=== PATIENT | male | born 1950 | race Hispanic/Latino ===

== ENCOUNTER 2019-03-04 05:47 | Day surgery (SDC) | payer OTHER ==
[2019-02-27 09:40] VITALS: BP 159/67
[2019-02-27 09:58] LABS: BASOPHILS % (AUTO) 0.6 % (0.0-5.0); EOSINOPHILS % (AUTO) 4.7 % (0.0-8.0); HEMATOCRIT 44.3 % (42-54); LYMPHOCYTES % (AUTO) 22.4 % (21.0-51.0); MEAN CORPUSCULAR HGB CONC 34.2 g/dL (32.0-36.0); MEAN CORPUSCULAR VOLUME 87.8 fL (79-99); NEUTROPHILS % (AUTO) 65.3 % (40.0-77.0); NUCLEATED RED BLOOD CELLS 0.1 % (0.0-0.19); PLATELET COUNT (AUTO) 196 K/uL (130-400); RED BLOOD CELL COUNT(AUTO) 5.05 MIL/uL (4.50-6.20); RED CELL DISTRIBUTION WIDTH 14.3 % (11.0-15.5); WHITE BLOOD COUNT (AUTO) 7.6 K/uL (4.8-10.8)
[2019-02-27 09:59] LABS: APPEARANCE,URINE Clear (CLEAR); BILIRUBIN,URINE Negative (NEGATIVE); COLOR,URINE Yellow (YELLOW); GLUCOSE, URINE (UA) >=1000 mg/dL (NEGATIVE); KETONES,URINE Negative (NEGATIVE); LEUKOCYTE ESTERASE ,URINE Negative (NEGATIVE); NITRATE,URINE Negative (NEGATIVE); OCCULT BLOOD,URINE Negative (NEGATIVE); PROTEIN,URINE Negative (NEGATIVE)
[2019-02-27 10:05] LABS: BACTERIA,URINE Rare /HPF (None Seen); RBC,URINE 0-1 /HPF (0-1); SQUAMOUS EPITHELIAL CELL,UR Rare /HPF (0-2); WBC,URINE 0-1 /HPF (0-1)
[2019-02-27 10:06] LABS: POTASSIUM 4.3 mmol/L (3.5-5.1)
[2019-02-27 10:08] LABS: INR 0.99 (0.85-1.15); PARTIAL THROMBOPLASTIN TIME 25.2 SEC (26.3-35.5); PROTHROMBIN TIME 10.4 SEC (9.6-11.6)
[2019-03-04] VITALS (11 sets, daily range): BP systolic 126–166; BP diastolic 65–72
[~2019-03-04] VITALS: Ht 167.6 cm; Wt 82.2 kg
[~2019-03-04 05:47] MED LIST: AMLO10TA7 PO; ASPI-1181 PO; ENAL20TA PO; LIRA0.6P SQ; METF-444 PO; SIMV-46 PO
[2019-03-04] MEDS ORDERED: SODIUM CHLORIDE 0.9% 1000ML 1,000 ML IV ONE (06:05)
[2019-03-04] MEDS ORDERED: LIDOCAINE HCL 1% 20 ML VIAL ONE (10:07)
[2019-03-04] MEDS ORDERED: SODIUM BICARB 50MEQ 50ML VIAL ONE (10:07)
[2019-03-04] MEDS ORDERED: NITROGLYCERIN 5 MG/ML 10 ML VIAL IV ONE (10:08)
[2019-03-04] MEDS ORDERED: IODIXANOL 320 MG/ML 100 ML VIAL ONE (10:08)
[2019-03-04] MEDS ORDERED: SODIUM CHLORIDE 0.9% 1000ML 1,000 ML IV SCH (11:07)
[2019-03-04] MEDS ORDERED: DEXTROSE 50%-WATER 50 ML DISP.SYRIN IV PRN (11:15)
[2019-03-04] MEDS ORDERED: GLUCAGON 1MG KIT 1 MG ML IM PRN (11:15)
[2019-03-04] MEDS ORDERED: INSULIN HUMULIN R 100 UNIT/ML 3ML SQ SCH (11:30)
--- NOTE | 2019-03-04 15:10 | NUR ---
Pt discharged home, tolerating solids and fluids well, ambulating well, voided. Pt denies any severe pain, nausea or dizziness. Cath site to right groin remains soft, nontender, dressing dry, clean and intact. Pt instructed in routine and emergency care of right femoral groin. Prescription for Plavix given to spouse. Reminded pt to HOLD METFORMIN for 48 hours. Pt and spouse deny any further questions.
== END 2019-03-04 15:10 | disposition home or self-care (01) ==
LOC: DAH 05:47
PROVIDERS: ATTEND Internal Medicine Cardiovascular Disease
DX: I65.23 Occlusion and stenosis of bilateral carotid arteries (principal); I70.0 Atherosclerosis of aorta; I10 Essential (primary) hypertension; E11.9 Type 2 diabetes mellitus without complications; E78.5 Hyperlipidemia, unspecified; Z98.890 Other specified postprocedural states; Z79.82 Long term (current) use of aspirin; Z79.899 Other long term (current) drug therapy
CPT/HCPCS: 36223; 36415; 71045; 80048; 81001; 82948 ×2; 85025; 85610; 85730; 93005; A4215; A4216; A4221; A4222; A4223 ×3; A4606; A4663; C1760; C1769; C1894; J1644; J3490 ×2; J7030; Q9967

== ENCOUNTER → 2019-06-02 | Outpatient (CLI) | payer OTHER ==
[~2019-06-02] MED LIST changes: +BENZ-51 PO; +CEFD300C3 PO; +CLOP75TA32 PO; +FENO145T26 PO
[2019-06-02 11:47] LABS: BASOPHILS % (AUTO) 0.7 % (0.0-5.0); EOSINOPHILS % (AUTO) 6.7 % (0.0-8.0); HEMATOCRIT 42.2 % (42-54); LYMPHOCYTES % (AUTO) 23.5 % (21.0-51.0); MEAN CORPUSCULAR HEMOGLOBIN 29.1 pg (27.0-33.0); MEAN CORPUSCULAR HGB CONC 33.4 g/dL (32.0-36.0); MONOCYTES % (AUTO) 9.2 % (3.0-13.0); NEUTROPHILS % (AUTO) 59.5 % (40.0-77.0); PLATELET COUNT (AUTO) 223 K/uL (130-400); RED BLOOD CELL COUNT(AUTO) 4.85 MIL/uL (4.50-6.20); RED CELL DISTRIBUTION WIDTH 13.8 % (11.0-15.5); WHITE BLOOD COUNT (AUTO) 8.4 K/uL (4.8-10.8)
[2019-06-02 11:51] LABS: APPEARANCE,URINE Clear (CLEAR); BILIRUBIN,URINE Negative (NEGATIVE); COLOR,URINE Yellow (YELLOW); GLUCOSE, URINE (UA) TRACE mg/dL (NEGATIVE); KETONES,URINE Trace mg/dL (NEGATIVE); LEUKOCYTE ESTERASE ,URINE Negative (NEGATIVE); NITRATE,URINE Negative (NEGATIVE); OCCULT BLOOD,URINE Negative (NEGATIVE); PROTEIN,URINE POS 2+ mg/dL (NEGATIVE)
[2019-06-02 11:53] LABS: BACTERIA,URINE Rare /HPF (None Seen); RBC,URINE 0-1 /HPF (0-1); SQUAMOUS EPITHELIAL CELL,UR Rare /HPF (0-2); WBC,URINE 0-1 /HPF (0-1)
[2019-06-02 11:54] LABS: CREATININE 1.1 mg/dL (0.5-1.5); POTASSIUM 4.2 mmol/L (3.5-5.1)
[2019-06-02 11:56] LABS: INR 0.98 (0.85-1.15); PARTIAL THROMBOPLASTIN TIME 25.4 SEC (26.3-35.5); PROTHROMBIN TIME 10.3 SEC (9.6-11.6)
--- NOTE | 2019-06-02 12:22 | NUR ---
NURSING PT STATES HE HAS STOPPED PLAVIX ON HIS OWN FOR ONE WEEK BECAUSE HE JUST DOESN'T THINK HE NEEDS TO BE TAKING BOTH PLAVIX AND ASA. I EXPLAINED DIFFERENCE BETWEEN BOTH MEDS BUT PT INSIST NO NEED TO BE ON BOTH. CALL [facility] WITH DR LE AND ORDERS RECD TO CANCEL PROC AND INSTRUCT PT TO CONT ON BOTH MEDS AND RESCHEDULE WITH OFFICE. PT UPSET BECAUSE WITH CANCELLATION AND I WAS ABLE TO INSTRUCT ON CONTINUING MEDS ORDERED BY [facility]. Addendum: 06/02/19 at 1231 by ЮЛИЯ HAGEN RN Amended: Links added.
== END | disposition home or self-care (01) ==
LOC: DAH 10:00 → EDSTATUS 12:00
PROVIDERS: ATTEND Internal Medicine Cardiovascular Disease
DX: I65.23 Occlusion and stenosis of bilateral carotid arteries (principal)
CPT/HCPCS: 36415; 80048; 81001; 85025; 85610; 85730; 86850; 86900; 86901; 86922; 93005

== ENCOUNTER 2019-08-19 05:16 | Inpatient (IN) | payer OTHER ==
[2019-08-19] VITALS (18 sets, daily range): BP systolic 107–161; BP diastolic 42–89
[~2019-08-19] VITALS: Ht 162.6 cm; Wt 73.6 kg
[~2019-08-19 05:16] MED LIST changes: +AMLO-258 PO; -AMLO10TA7 PO; -ASPI-1181 PO; -BENZ-51 PO; -CEFD300C3 PO; -ENAL20TA PO; +ENAL20TA18 PO; +VITAMIN B-12 PO
[2019-08-19 06:33] LABS: BASOPHILS % (AUTO) 0.6 % (0.0-5.0); EOSINOPHILS % (AUTO) 4.5 % (0.0-8.0); HEMATOCRIT 43.1 % (42-54); LYMPHOCYTES % (AUTO) 24.2 % (21.0-51.0); MEAN CORPUSCULAR HEMOGLOBIN 28.9 pg (27.0-33.0); MEAN CORPUSCULAR HGB CONC 33.6 g/dL (32.0-36.0); MONOCYTES % (AUTO) 8.6 % (3.0-13.0); NEUTROPHILS % (AUTO) 61.8 % (40.0-77.0); PLATELET COUNT (AUTO) 230 K/uL (130-400); RED BLOOD CELL COUNT(AUTO) 5.01 MIL/uL (4.50-6.20); RED CELL DISTRIBUTION WIDTH 13.7 % (11.0-15.5); WHITE BLOOD COUNT (AUTO) 9.3 K/uL (4.8-10.8)
[2019-08-19] MEDS ORDERED: SODIUM CHLORIDE 0.9% 1000ML 1,000 ML IV ONE (06:39)
[2019-08-19 06:40] LABS: APPEARANCE,URINE Cloudy (CLEAR); BILIRUBIN,URINE Negative (NEGATIVE); COLOR,URINE Yellow (YELLOW); GLUCOSE, URINE (UA) Negative (NEGATIVE); KETONES,URINE Trace mg/dL (NEGATIVE); LEUKOCYTE ESTERASE ,URINE Negative (NEGATIVE); NITRATE,URINE Negative (NEGATIVE); OCCULT BLOOD,URINE Negative (NEGATIVE); PROTEIN,URINE POS 2+ mg/dL (NEGATIVE)
[2019-08-19 06:46] LABS: CREATININE 1.1 mg/dL (0.5-1.5)
[2019-08-19 06:49] LABS: INR 0.99 (0.85-1.15); PARTIAL THROMBOPLASTIN TIME 25.7 SEC (26.3-35.5); PROTHROMBIN TIME 10.7 SEC (9.6-11.6)
[2019-08-19] MEDS ORDERED: HEPARIN SODIUM 1000UNIT/ML 10ML VIAL ONE (06:54)
[2019-08-19] MEDS ORDERED: IODIXANOL 320 MG/ML 100 ML VIAL ONE (06:54)
[2019-08-19 06:57] LABS: BACTERIA,URINE Few /HPF (None Seen)
--- NOTE | 2019-08-19 06:57 | NUR ---
POTENTIAL FOR INFECTION: CLIPPED FROM NECK AREA, CHEST AND BILATERAL GROIN PER WOO WADE.
[2019-08-19 06:58] LABS: MUCUS,URINE Rare LPF (None Seen); SQUAMOUS EPITHELIAL CELL,UR Rare /HPF (0-2)
[2019-08-19] MEDS ORDERED: ASPIRIN 81MG TAB.CHEW ONE (06:59)
[2019-08-19] MEDS ORDERED: CEFAZOLIN SODIUM 1 GM VIAL ONE ×2 (07:02→07:36)
[2019-08-19] MEDS ORDERED: LIDOCAINE PF 2% 5ML ABBOJECT ONE (07:09)
[2019-08-19] MEDS ORDERED: MIDAZOLAM HCL 1 MG/ML 2ML VIAL ONE (07:10)
[2019-08-19] MEDS ORDERED: PROPOFOL 10 MG/ML 20ML VIAL IV ONE ×2 (07:10→09:07)
[2019-08-19] MEDS ORDERED: ROCURONIUM 10MG/1ML SYR 10 MG/ML ML ONE (07:10)
[2019-08-19] MEDS ORDERED: NOREPINEPHRINE BITARTRATE 1 MG/1 ML ML IV ONE (07:39)
[2019-08-19] MEDS ORDERED: FENTANYL CITRATE PF 50 MCG/1 ML 2ML VIAL ONE (07:46)
[2019-08-19] MEDS ORDERED: ESMOLOL HCL 10 MG/ML 10 ML VIAL ONE (07:55)
[2019-08-19] MEDS ORDERED: ATROPINE SULFATE 0.1 MG/ML 10 ML SYG IVP ONE (08:04)
[2019-08-19] MEDS ORDERED: PHENYLEPHRINE HCL 10 MG/ML 1ML VIAL IV ONE (08:13)
[2019-08-19] MEDS ORDERED: GLYCOPYRROLATE 0.2 MG/ML 5 ML VIAL ONE (08:35)
[2019-08-19] MEDS ORDERED: OCTYL 2-CYANOACRYLATE 1 EACH TP ONE (09:32)
[2019-08-19] MEDS ORDERED: NEOSTIGMINE 5MG/5ML SYR IV ONE (09:36)
[2019-08-19] MEDS ORDERED: GLUCAGON 1MG KIT 1 MG ML IM PRN (09:45)
[2019-08-19] MEDS ORDERED: DEXTROSE 50%-WATER 50 ML DISP.SYRIN IV PRN (09:45)
[2019-08-19] MEDS ORDERED: ACETAMINOPHEN-CODEINE 300/30MG TAB PO PRN (09:45)
[2019-08-19] MEDS ORDERED: ONDANSETRON HCL 4 MG/2 ML VIAL IV PRN (09:45)
[2019-08-19] MEDS ORDERED: NITROGLYCERIN 50 MG/D5% WATER 250 BOT IV PRN (10:00)
[2019-08-19] MEDS: SODIUM CHLORIDE 0.9% 1000ML 1,000 ML IV SCH ×2 (10:18→21:52)
[2019-08-19] MEDS: NOREPINEPHRINE 4MG/NS 250ML 250 ML IV PRN ×3 (10:20→22:10)
--- NOTE | 2019-08-19 11:15 | NUR ---
MARIA DE JESUS PLAN PATIENT DOWN FOR PROCEDURE. CM WILL CONTINUE TO FOLLOW ONCE BACK AND STABLE. Addendum: 08/19/19 at 1116 by KRISTAN ANGEL RN CM Amended: Links added.
[2019-08-19] MEDS: INSULIN HUMULIN R 100 UNIT/ML 3ML SQ SCH ×3 (11:30→21:41)
[2019-08-19] MEDS: CEFAZOLIN SODIUM 1 GM VIAL IVP SCH ×2 (16:21→23:34)
[2019-08-19] MEDS ORDERED: SIMVASTATIN 20 MG TABLET PO SCH (21:00)
[2019-08-19] MEDS: VICTOZA 0.6 MG SQ SCH (21:00)
[2019-08-19] MEDS ORDERED: AMLODIPINE BESYLATE 5 MG TAB PO SCH (21:00)
[2019-08-19] MEDS: ENALAPRIL MALEATE 10 MG TABLET PO SCH (21:00)
[2019-08-20] VITALS (13 sets, daily range): BP systolic 124–155; BP diastolic 47–72
[2019-08-20 05:18] LABS: HEMATOCRIT 36.2 % (42-54); MEAN CORPUSCULAR HEMOGLOBIN 28.7 pg (27.0-33.0); MEAN CORPUSCULAR VOLUME 84.6 fL (79-99); RED BLOOD CELL COUNT(AUTO) 4.28 MIL/uL (4.50-6.20); RED CELL DISTRIBUTION WIDTH 13.6 % (11.0-15.5); WHITE BLOOD COUNT (AUTO) 9.1 K/uL (4.8-10.8)
[2019-08-20 05:37] LABS: CREATININE 0.8 mg/dL (0.5-1.5); POTASSIUM 3.5 mmol/L (3.5-5.1)
[2019-08-20] MEDS: INSULIN HUMULIN R 100 UNIT/ML 3ML SQ SCH (06:46)
[2019-08-20] MEDS ORDERED: CLOPIDOGREL BISULFATE 75 MG TAB PO SCH (09:00)
[2019-08-20] MEDS: ENALAPRIL MALEATE 10 MG TABLET PO SCH (09:00)
[2019-08-20] MEDS ORDERED: FENOFIBRATE NANOCRYSTALLIZED 145 MG TAB PO SCH (09:00)
[2019-08-20] MEDS ORDERED: ASPIRIN 81 MG EC TAB PO SCH (09:00)
--- NOTE | 2019-08-20 11:27 | NUR ---
PATIENT READY FOR DISCHARGE. ORDERS FOR DISCHARGE HOME GIVEN. GAVE PATIENT DISCHARGE INSTRUCTIONS, INFORMATION AND EDUCATION ABOUT MEDICATIONS AND FOLLOW APPOINTMENTS. DC TWO IV'S FROM LEFT ARM. APPLIED PRESSURE DRESSING, NO BLEEDING OR HEMATOMAS.
== END 2019-08-20 14:00 | disposition home or self-care (01) | DRG 36 ==
LOC: 2BH 05:16 → EDSTATUS 09:45 → PAH.CVR 11:04
PROVIDERS: ADMIT Internal Medicine; ATTEND Internal Medicine
PROC: B3171ZZ Fluoroscopy of Left Internal Carotid Artery using Low Osmolar Contrast (ICD-10-PCS; 2019-08-19)
PROC: 037L3DZ Dilation of Left Internal Carotid Artery with Intraluminal Device, Percutaneous Approach (ICD-10-PCS; principal; 2019-08-19 07:15)
DX: I65.22 Occlusion and stenosis of left carotid artery (principal); E11.9 Type 2 diabetes mellitus without complications; E78.00 Pure hypercholesterolemia, unspecified; E78.5 Hyperlipidemia, unspecified; I10 Essential (primary) hypertension; J44.9 Chronic obstructive pulmonary disease, unspecified; F17.200 Nicotine dependence, unspecified, uncomplicated; Z68.27 Body mass index [BMI] 27.0-27.9, adult; Z79.02 Long term (current) use of antithrombotics/antiplatelets; Z79.84 Long term (current) use of oral hypoglycemic drugs; Z79.899 Other long term (current) drug therapy
CPT/HCPCS: 36415; 37215; 71045; 80048; 81001; 82948; 85025; 85027; 85347; 85610; 85730; 86850; 86900; 86901; 86922; C1725; G0378; J0461; J0690; J1644; J2001; J2250; J2370; J2704; J2710; J3010; J3490; J7030; J7040; Q9967

== ENCOUNTER → 2022-01-27 | Outpatient (CLI) | payer OTHER ==
[~2022-01-27] MED LIST changes: +IOHEXOL 350 MG/ML 100ML INFUS..BTL IV ONE
== END | disposition home or self-care (01) ==
LOC: RAH 08:13
PROVIDERS: ATTEND Internal Medicine Cardiovascular Disease
DX: I65.23 Occlusion and stenosis of bilateral carotid arteries (principal); I25.10 Atherosclerotic heart disease of native coronary artery without angina pectoris; I65.21 Occlusion and stenosis of right carotid artery; I10 Essential (primary) hypertension
CPT/HCPCS: 70498; Q9967